=== PATIENT | female | born 1950 | race Caucasian/White ===

== ENCOUNTER 2020-11-01 12:18 | Observation (INO) | payer OTHER ==
[~2020-11-01] VITALS: Ht 165.1 cm; Wt 110.7 kg
[2020-11-01] VITALS (9 sets, daily range): BP systolic 86–106; BP diastolic 40–65
[~2020-11-01 12:18] MED LIST: ASPIRIN325 PO; EFFIENT10 MG PO; FISH OIL 1,001000 M2 PO; LEVAQUIN 500 M500 M2 PO; LISINOPRIL5 MG PO; SIMVASTATIN40 MG PO; TOPROL XL25 MG PO
[2020-11-01] MEDS ORDERED: MELOXICAM7.5 MG PO (13:02)
[2020-11-01] MEDS ORDERED: CHLORTHALIDONE25 MG PO (13:04)
[2020-11-01] MEDS ORDERED: ZETIA10 MG PO (13:05)
[2020-11-01] MEDS ORDERED: LEVO-T50 MCG PO (13:05)
[2020-11-01 13:29] LABS: HEMATOCRIT 38.4 % (37.0-47.0); HEMOGLOBIN 12.8 gm/dL (12.0-15.0); MCH 28.7 pg (26.0-34.0); MCHC 33.4 g/dL (28.0-37.0); RBC 4.47 mil/uL (4.20-5.00); RDW 14.5 % (10.5-14.5); WBC 3.9 thou/uL (4.0-11.0)
--- NOTE | 2020-11-01 13:30 | EKG ---
[place] [address] [employer] [address] ELECTROCARDIOGRAM REPORT Name: LEENA MORALES Room #: PRE IN ..#: [id number] Admission: Attend Phys: Juni Lyle MD, Discharge: Date of : 52 Report #: [id number] [facility] Test Date: 2020-11-01 Test Time: 13:03:37 Pat Name: LEENA MORALES Department: Room: Gender: F Machine Setter: OMARI : 1950 Requested By: Juni Lyle Order Number: [id number] MD: Maverick Bailey Measurements Intervals [place] Rate: 62 P: 46 MN: 195 QRS: 24 QRSD: 122 T: 9 QT: 422 QTc: 429 Interpretive Statements Sinus rhythm transient Ventricular bigeminy Nonspecific intraventricular conduction delay Inferior infarct, old Compared to ECG 07/13/2015 08:09:00 Ventricular premature complex(es) now present Intraventricular conduction delay now present Myocardial infarct finding now present Electronically Signed On 11-01-2020 13:30:18 REPAIRER HELPER by Maverick Bailey [email or web address] <ELECTRONICALLY SIGNED> By: Maverick Bailey MD, [facility] 11/01/20 4300 1303 1303 Maverick Bailey MD, [facility] /EPI
[2020-11-01 13:45] LABS: CALCIUM 8.5 mg/dL (8.5-10.1); CREATININE 1.9 mg/dL (0.6-1.0); POTASSIUM 3.6 mmol/L (3.5-5.1)
[2020-11-01 13:55] LABS: TROPONIN-I 0.21 ng/mL (<0.06)
--- NOTE | 2020-11-01 14:08 | 2DMMODE ---
[facility] [address] [place] [address] 2 D/M-MODE ECHOCARDIOGRAM Name: LEENA MORALES Room #: PRE IN M.R.#: [id number] Admission: Attend Phys: Juni Lyle MD, Discharge: Date of : 52 Report #: [id number] THIS REPORT FOR: cc: FAM - Family physician unknown FAM - Family physician unknown Maverick Bailey MD [facility] ~ APPROVED REPORT Study performed: 11/01/2020 13:11:06 EXAM: Comprehensive 2D, Doppler, and color-flow Echocardiogram Patient Location: [facility] [employer] Status: routine BSA: 2.17 HR: 66 bpm Rhythm: NSR/Frequent PVCs Other Information Study Quality: Good Indications Chest pain. Hx: VT, stent, HTN, HLP 2D Dimensions RVDd: 30.23 mm IVSd: 12.00 (7-11mm) LVOT Diam: 21.00 (18-24mm) LVDd: 54.00 mm PWd: 10.00 (7-11mm) Ascending Ao: 31.00 (22-36mm) LVDs: 44.00 (25-40mm) Aortic Root: 35.55 mm Volumes Left Atrial Volume (Systole) Single Plane 4CH: 35.72 mL Single Plane 2CH: 39.18 mL LA ESV Index: 19.00 mL/m2 Aortic Valve AoV Peak Nir.: 2.14 m/s AO Peak Gr.: 18.28 mmHg LVOT Max P.45 mmHg AO Mean Gr.: 10.17 mmHg AO V2 Mean: 1.53 m/s LVOT Max V: 1.17 m/s [facility] [address] [place] [address] 2 D/M-MODE ECHOCARDIOGRAM Name: LEENA MORALES Room #: PRE IN [facility]#: [id number] Admission: Attend Phys: Juni Lyle, Discharge: Date of : 52 Report #: [id number] AO V2 VTI: 44.46 cm THA Vmax: 1.92 cm2 Mitral Valve E/A Ratio: 0.8 MV Decel. Time: 181.78 ms MV E Max Nir.: 0.92 m/s MV A Nir.: 1.16 m/s MV PHT: 52.72 ms IVRT: 86.51 ms Pulmonary Valve PV Peak Nir.: 1.10 m/s PV Peak Gr.: 4.86 mmHg Pulmonary Vein P Vein S: 0.58 m/s P Vein A: 0.27 m/s P Vein D: 0.33 m/s P Vein A Dur.: 107.3 msec P Vein S/D Ratio: 1.76 Tricuspid Valve RAP Estimate: 5.00 mmHg Left Ventricle The left ventricle is normal size. Regional wall motion abnormalities are noted. Mild basal septal hypertrophy is present. Left ventricular systolic function is normal. LVEF is 50-55%. Grade I - abnormal relaxation pattern. Right Ventricle The right ventricle is normal size. The right ventricular systolic function is normal. Atria The left atrium size is normal. The right atrium size is normal. Aortic Valve The aortic valve is normal in structure. Mildly calcified leaflets. No aortic regurgitation is present. There is very mild valvular aortic stenosis. Calculated aortic valve area is 1.9 cm2 with maximum pressure gradient of 18 mmHg and mean pressure gradient of 10 mmHg. Mitral Valve The mitral valve is normal in structure. Trace mitral regurgitation. No evidence of mitral valve stenosis. [facility] [place] [address] 2 D/M-MODE ECHOCARDIOGRAM Name: LEENA MORALES Room #: PRE IN M.R.#: [id number] Admission: Attend Phys: Juni Lyle, Discharge: Date of : 52 Report #: [id number] Tricuspid Valve The tricuspid valve is normal in structure. There is no tricuspid valve regurgitation noted. Unable to assess PA pressure. Pulmonic Valve The pulmonary valve is normal in structure. Trace pulmonic regurgitation. Great Vessels The aortic root is normal in size. The ascending aorta is normal in size. IVC is normal in size and collapses >50% with inspiration. Pericardium There is no pericardial effusion. <Conclusion> Normal left ventricular size with mild basal hypertrophy Ejection fraction 55% Grade 1 diastolic dysfunction Normal right ventricular size/function Normal atrial size Color-flow upper study was performed of the aortic/mitral/tricuspid/pulmonary valve Mild aortic valve calcification Mild aortic valve stenosis THA estimated at 1.8 cm and mean gradient of 10 mmHg Normal mitral valve structure and function No evidence of tricuspid valve insufficiency No pericardial effusion <ELECTRONICALLY SIGNED> By: Maverick Bailey MD, FACC 11/01/20 1408 140 1408 Maverick Bailey MD, FACC /INF
[2020-11-01 17:31] LABS: CHOLESTEROL 165 mg/dL (<200); HDL CHOLESTEROL 29 mg/dL (>40); LDL CHOLESTEROL 102 mg/dL (<100); TC:HDL 5.7 Ratio (Not establshd); TRIGLYCERIDE 171 mg/dL (<150); VLDL 34 mg/dL (<40)
[2020-11-01 23:14] LABS: HEMATOCRIT 33.3 % (37.0-47.0); HEMOGLOBIN 11.2 gm/dL (12.0-15.0); MCH 28.8 pg (26.0-34.0); MCHC 33.6 g/dL (28.0-37.0); MCV 85.9 fL (80.0-100.0); RBC 3.87 mil/uL (4.20-5.00); RDW 14.5 % (10.5-14.5); WBC 5.1 thou/uL (4.0-11.0)
[2020-11-01 23:18] LABS: CALCIUM 8.1 mg/dL (8.5-10.1); POTASSIUM 3.8 mmol/L (3.5-5.1)
[2020-11-02] VITALS (7 sets, daily range): BP systolic 82–114; BP diastolic 34–46
[2020-11-02 05:07] LABS: GLYCOHEMOGLOBIN (HGB A1C) 6.8 % (4.8-5.6)
[2020-11-02 05:36] LABS: HEMATOCRIT 32.3 % (37.0-47.0); MCH 29.2 pg (26.0-34.0); MCHC 34.2 g/dL (28.0-37.0); MCV 85.5 fL (80.0-100.0); RBC 3.78 mil/uL (4.20-5.00); RDW 14.5 % (10.5-14.5); WBC 4.8 thou/uL (4.0-11.0)
[2020-11-02 05:59] LABS: ALBUMIN 2.9 g/dL (3.4-5.0); CALCIUM 8.1 mg/dL (8.5-10.1); CREATININE 2.1 mg/dL (0.6-1.0); POTASSIUM 3.9 mmol/L (3.5-5.1); TOTAL BILIRUBIN 0.5 mg/dL (0.2-1.0); TOTAL PROTEIN 6.1 g/dL (6.4-8.2); TROPONIN-I 0.21 ng/mL (<0.06)
--- NOTE | 2020-11-02 08:05 | NUR ---
ASSESSMENTS CHARTED, MEDS CHARTED GIVEN. PATIENT WENT TO [facility] YESTER[facility], RECEIVED STENT TO RIGHT RCA. AT SHIFT CHANGE GROIN SITE WAS CLEAN DRY SOFT. TO THE RIGHT OF THE GROIN SITE WAS A SOFTBALL SIZE HEMATOMA, HARD AND PAINFUL. PRESSURE WAS HELD FOR 2O MINUTES, PRESSURE WAS REMOVED FOR 15 MINUTES, PRESSURE WAS HELD AGAIN FOR 10 MINUTES. OUTLINE WAS MARKED. PATIENT WAS PLACED ON BEDREST FOR AN ADDITIONAL [address] GRANDA ORDERED A ALEMAN, STAT LABS AND PAIN MEDS. PATIENT REQUIRED A 14 URDU SILICONE CATHETER.
--- NOTE | 2020-11-02 08:06 | EKG ---
[address] [email or web address] [address] ELECTROCARDIOGRAM REPORT Name: LEENA MORALES Room #: 219-P [facility] M.R.#: [id number] Admission: 11/01/20 Attend Phys: Juni Lyle MD, Discharge: Date of : 52 Report #: [id number] [facility] Test Date: 2020-11-02 Test Time: 07:18:21 Pat Name: LEENA MORALES Department: Room: 219 P Gender: F Dish Washer: PEBBLES : 1950 Requested By: Shanique Sharif Order Number: [id number] MD: Louis Hamlin Measurements Intervals [place] Rate: 61 P: 23 NH: 157 QRS: 1 QRSD: 117 T: -16 QT: 423 QTc: 426 Interpretive Statements Sinus rhythm Multiple ventricular premature complexes Nonspecific intraventricular conduction delay Inferior infarct, age indeterminate Compared to ECG 11/01/2020 13:03:37 No significant changes Electronically Signed On 11-02-2020 8:06:45 HEADRIG SAWYER by Louis Hamlin [email or web address] <ELECTRONICALLY SIGNED> By: Louis Hamlin MD, [facility] 02/02/15 806 7 7 Louis Hamlin MD, [facility] /EPI
[2020-11-02] MEDS ORDERED: EFFIENT10 MG PO (13:16)
[2020-11-02] MEDS ORDERED: CHLORTHALIDONE25 MG PO (13:16)
[2020-11-02] MEDS ORDERED: LIPITOR40 MG PO (13:16)
--- NOTE | 2020-11-02 16:19 | CATHLAB ---
[facility] [address] [place] [address] INVASIVE PROCEDURE REPORT Name: LEENA MORALES Room #: 219-P ADM Papi M.RCary#: [id number] Admission: 11/01/20 Attend Phys: Juni Lyle MD, Discharge: Date of : 52 Report #: [id number] THIS REPORT FOR: cc: FAM - Family physician unknown FAM - Family physician unknown Juni Lyle MD [facility] ~ APPROVED REPORT Study performed: 11/01/2020 14:07:12 Patient Details Patient Status: Out-Patient Room #: The patient is a 70 year-old female Event Personnel Juni Lyle Pyrometallurgical Engineer, Vielka Vickers RTR Scrub, Emilie Fermin RTR Monitor, Sohail Gage RN, Constanza Ackerman RTR, GROUNDS CARETAKER Scrub Procedures Performed Art Access - R femoral artery* Forest Access - R femoral vein 07304 Initial Mod Sed Same Phys/QHP Gr5y 814857 93187 Mod Sed Same Phys/QHP Ea 215858 TRACEE Place w/wo Plasty Single RCA 555194 Hemostasis w/ Mynx Right and Left Heart Cath w/or w/o Coronarie [id number] [facility] Indication Chest pain Procedure Narrative The Right Groin^ was infiltrated with 1% Lidocaine subcutaneous anesthesia. A Right Heart Catheterization was performed with a 7 Fr. Brook[place]-Vee catheter and pressure were recorded. Cardiac outputs were obtained by the Thermal Dilution method. A PINNACLE 6FR Sheath #[id number] sheath was inserted into the RFV^. Coronary angiography was performed using coronary diagnostic catheters. The right coronary system was accessed and visualized with a JR4 catheter. The left coronary system was accessed and visualized with a JL4 catheter. The left ventricle was accessed and visualized with a PIGTAIL catheter. Left ventriculogram was performed in 30 degree projection. Closure device was deployed with a 6 Fr MYNXGRIP 6/7F #[id number]. The patient tolerated the procedure well and there were no complications associated with the procedure. There was no hematoma. [facility] [address] [place] [address] INVASIVE PROCEDURE REPORT Name: LEENA MORALES Room #: 219-P [facility] IN .R.#: [id number] Admission: 11/01/20 Attend Phys: Juni Lyle, Discharge: Date of : 52 Report #: [id number] Intraoperative Conscious Sedation Sedation start time: 1510 Case end Time: 1619 Fentanyl 50 mcg Versed 1 mg Fluoro Time: 6.50 minutes Dose: DAP 44456.60 cGycm2 1891 mGy Contrast Type and Amount: Visipaque 100 ml Hemodynamics The right atrial mean pressure is 11 mmHg. The right ventricular pressure is 44/-3 mmHg. The pulmonary artery pressure is 33/15 mmHg with a mean of 20 mmHg. The mean pulmonary capillary wedge pressure is 15 mmHg. The aortic pressure is 114/47 mmHg with a mean of 67 mmHg. The left ventricular pressure is 109/9 mmHg with a mean of mmHg. The left ventricular end diastolic pressure is 15 mmHg. The cardiac output using thermo method is 4.00 L/min. The cardiac index using thermo method is 1.87 L/min/m2. PCI Technique Lesion Percutaneous coronary intervention was performed on the mid right coronary artery. A LAUNCHER 6FR JR 4 #[id number] Guide Catheter was used to engage the ostium. STENT DEPLOYMENT A drug-eluting stent RESOLUTE AMBROSIO OTW 3.5 X 8 #[id number] was inserted and inflated up to 14.00atm for 38seconds. POST STENT DEPLOYMENT BALLOON DILATION A Balloon catheter TREK NC OTW 3.75 X 12 #[id number] was inserted and inflated up to 18.00atm for 18seconds. Additional Inflation: 20.00atm for 24seconds. Additional Inflation: 20.00atm for 16seconds. Conclusion #1. Successful PTCA stent of an 80% dominant RCA stenosis distal to a previously placed stent. Placement of a 3.5 x 8 resolute [place] postdilated 3.9 mm and redilatation of the stent proximal to this segment. PARUL grade III flow in a large extensively dominant vessel. #2 mild ostial left main disease of 20 to 30% giving rise to LAD and circumflex. #3 LAD with mild disease extending to the apex somewhat attenuated distally. #4 small nondominant circumflex OM with mild disease. #5 normal left jugular size with inferior basilar hypokinesis EF [address] [address] INVASIVE PROCEDURE REPORT Name: ANDREWLEENA CLEMONS Room #: 219-P [facility] IN M.R.#: [id number] Admission: 11/01/20 Attend Phys: Juni Lyle, Discharge: Date of : 52 Report #: [id number] to 50% range. Recommendations and plan: Continue aggressive risk factor modification. Dual antiplatelet therapy has been initiated for RCA stent placement. Transfer to CCU to follow post coronary stent protocol. <ELECTRONICALLY SIGNED> By: Juni Lyle MD, FAC 11/02/20 1619 18 18 Juni Lyle MD, FACC /INF
--- NOTE | 2020-11-02 18:43 | NUR ---
ASSUMED CARE OF PT AT SHIFT CHANGE. ASSESSMENTS CHARTED. MEDS GIVEN PER NOV. PT A&OX4, NO C/O PAIN. R GROIN SITE IMPROVED, NO HEMATOMA. SOME BRUISING. PT ON 2L NC. PLAN FOR DC TOMORROW. WILL CONTINUE TO MONITOR AND FOLLOW POC.
--- NOTE | 2020-11-03 03:19 | NUR ---
PT IS ALERT AND ORIENTED X4. LUNGS ARE CLEAR ON ROOM AIR. PT HAS A ALEMAN CATH TO DD WITH YELLOW URINE. PT PLEASANT WATCHING TV AND DOZING. DENIES ANY COMPLAINTS OF PAIN AT THIS TIME. MINX DRESSING IN RIGHT GROIN DRY AND INTACT HAS A HEMATOMA OUTLINED REMAINS UNCHANGED. CALL LIGHT WITHIN REACH IF NEEDS ASSISTANCE. NO ISSUES OR CONCERNS NOTED.
[2020-11-03 04:33] LABS: CALCIUM 8.4 mg/dL (8.5-10.1); CREATININE 1.6 mg/dL (0.6-1.0); POTASSIUM 3.3 mmol/L (3.5-5.1)
[2020-11-03 05:07] VITALS: BP 106/39
[2020-11-03 08:20] VITALS: BP 115/58
[2020-11-03 10:20] VITALS: BP 115/58
--- NOTE | 2020-11-03 12:30 | NUR ---
ASSUMMED PT CARE AT APPROXIMATELY 0700. PT A&O X4. ASSESSMENT CHARTED. FALL PRECAUTIONS IN PLACE. PT DENIES HAVING CHEST PAIN. PT DENIES HAVING SOB. PT DENIES HAVING ACUTE PAIN. R GROIN C/D/I. VITAL SIGNS STABLE. BLOOD SUGARS STABLE. PT DISCHARGING HOME C SELF CARE. PT RECEIVED DISCHARGE EDUCATION. PT STATED UNDERSTANDING AND DENIED HAVING FURTHER QUESTIONS. IV DC. TELE DC. PT AMBULATES STEADY C STANDBY. PT RECEIVED HOSPITAL ASSISTANCE OFF UNIT. PT COMFORTABLE. PT DENIES HAVING FURTHER CONCERNS.
== END 2020-11-03 12:55 | disposition home or self-care (01) ==
LOC: PRE 12:18 → TBACV 12:20 → PRE 12:37 → 2N 16:51
PROVIDERS: Nurse Practitioner Adult Health; ADMIT Internal Medicine Cardiovascular Disease; ATTEND Internal Medicine Cardiovascular Disease
DX: I21.4 Non-ST elevation (NSTEMI) myocardial infarction (principal); I25.10 Atherosclerotic heart disease of native coronary artery without angina pectoris; E78.00 Pure hypercholesterolemia, unspecified; I11.0 Hypertensive heart disease with heart failure; I50.9 Heart failure, unspecified; E11.9 Type 2 diabetes mellitus without complications; G89.29 Other chronic pain; Z79.82 Long term (current) use of aspirin; Z79.899 Other long term (current) drug therapy

== ENCOUNTER → 2021-03-12 | Outpatient (CLI) | payer OTHER ==
[~2021-03-12] MED LIST changes: +CHLORTHALIDONE25 MG PO; +LEVO-T50 MCG PO; +LIPITOR40 MG PO; +MELOXICAM7.5 MG PO; +ZETIA10 MG PO
== END ==
LOC: SJCVC 12:19
PROVIDERS: ATTEND Internal Medicine Cardiovascular Disease
DX: R94.31 Abnormal electrocardiogram [ECG] [EKG] (principal); I49.3 Ventricular premature depolarization; I45.89 Other specified conduction disorders; I25.10 Atherosclerotic heart disease of native coronary artery without angina pectoris; I11.0 Hypertensive heart disease with heart failure; I50.9 Heart failure, unspecified; E78.00 Pure hypercholesterolemia, unspecified; I35.0 Nonrheumatic aortic (valve) stenosis; G89.29 Other chronic pain; Z79.82 Long term (current) use of aspirin; Z79.899 Other long term (current) drug therapy; Z88.2 Allergy status to sulfonamides

== ENCOUNTER → 2021-06-25 | Outpatient (CLI) | payer OTHER | LOC: SJCVC 13:44 | PROVIDERS: ATTEND Internal Medicine Cardiovascular Disease | DX: R94.31 Abnormal electrocardiogram [ECG] [EKG] (principal); I25.10 Atherosclerotic heart disease of native coronary artery without angina pectoris; I11.0 Hypertensive heart disease with heart failure; I50.9 Heart failure, unspecified; E78.00 Pure hypercholesterolemia, unspecified; I35.0 Nonrheumatic aortic (valve) stenosis; M54.9 Dorsalgia, unspecified; G89.29 Other chronic pain; Z78.9 Other specified health status; R06.00 Dyspnea, unspecified; Z79.82 Long term (current) use of aspirin; Z79.899 Other long term (current) drug therapy ==

== ENCOUNTER → 2021-10-08 | Outpatient (CLI) | payer OTHER | LOC: SJCVCIMAG 07:20 | PROVIDERS: ATTEND Internal Medicine Cardiovascular Disease | DX: I08.8 Other rheumatic multiple valve diseases (principal); I49.3 Ventricular premature depolarization; I25.10 Atherosclerotic heart disease of native coronary artery without angina pectoris; I11.0 Hypertensive heart disease with heart failure; I50.9 Heart failure, unspecified; E11.9 Type 2 diabetes mellitus without complications; E78.00 Pure hypercholesterolemia, unspecified; G89.29 Other chronic pain; Z78.9 Other specified health status; Z79.82 Long term (current) use of aspirin; Z79.899 Other long term (current) drug therapy; Z79.84 Long term (current) use of oral hypoglycemic drugs; Z82.49 Family history of ischemic heart disease and other diseases of the circulatory system; Z88.8 Allergy status to other drugs, medicaments and biological substances ==